=== PATIENT | female | born 1945 | race Caucasian/White ===

== ENCOUNTER 2018-03-06 10:35 | Day surgery (SDC) | payer OTHER ==
[2018-02-26 11:04] VITALS: BMI 24.7
[2018-03-06] MEDS ORDERED: ACETAMINOPHEN 325 MG TABLET (FP) PO PRN (11:34)
[2018-03-06] MEDS: GENTAMICIN SULFATE 0.3% OPHTHALMIC (EYE DROPS) 5ML BOTTLE ONE ×2 (11:55→12:10)
[2018-03-06] MEDS: KETOROLAC TROMETHAMINE 0.5% EYE DROP 1 DROP DROPS ONE ×5 (11:55→12:15)
[2018-03-06] MEDS: TROPICAMIDE 1% OPHTH SOLN 15 ML BOTTLE ONE ×5 (11:55→12:15)
[2018-03-06] MEDS: PHENYLEPHRINE 2.5% OPHTH SOLN 15 ML BOTTLE ONE ×5 (11:55→12:15)
[2018-03-06] MEDS: CYCLOPENTOLATE HCL 1% OPHTH SOLN 2 ML BOTTLE ONE ×5 (11:55→12:15)
[2018-03-06] MEDS ORDERED: LIDOCAINE HCL/PF 2% SDV 5ML VIAL ONE (13:17)
[2018-03-06] MEDS ORDERED: LIDOCAINE HCL 2% JELLY 10 ML CARTRIDGE ONE (13:18)
[2018-03-06] MEDS ORDERED: BUPIVACAINE HCL/PF 0.5% (5MG/ML) 10 ML VIAL ONE (13:18)
[2018-03-06] MEDS ORDERED: ACETYLCHOLINE 1:100 INTRA-OCUL 20 MG/2 ML KIT ONE (13:18)
[2018-03-06] MEDS ORDERED: MIDAZOLAM HCL 2 MG/2 ML SINGLE DOSE VIAL ONE (13:40)
[2018-03-06] MEDS ORDERED: EPI-SHUGARCAINE (EPINEPHRINE 0.025% & LIDOCAINE-PF 0.75%) 4ML ONE (13:54)
[2018-03-06 15:07] VITALS: TEMP 98.3
--- NOTE | 2018-03-06 15:33 | OP ---
DATE OF OPERATION: 03/06/2018 TITLE OF PROCEDURE: Planned extracapsular cataract extraction, phacoemulsification, and insertion of posterior chamber lens implant, right eye. SURGEON: Hugo Marin MD [employer] SUPERVISOR SURGEON: Hugo Marin MD ANESTHESIA: Local, standby. NURSE SOIL CONSERVATION AIDE: EDER Morales ANESTHESIOLOGIST: Rowan Spencer MD COMPLICATIONS: None. PREOPERATIVE DIAGNOSIS: Mature cataract, right eye. POSTOPERATIVE DIAGNOSIS: Mature cataract, right eye. FINDINGS/PROCEDURE: After successful peribulbar anesthesia was given to the right eye, the patient was prepped and draped in the usual manner to expose the right eye. A lid speculum was inserted after the Tegaderm strips were placed, and operating room microscope brought into position over the right eye. A superior fornix-based flap was then fashioned for 12 mm with Kenyatta scissors and 0.12 forceps and hemostasis with electrocautery. Limbal groove was fashioned for 3 mm with a crescent blade dissecting anterior to clear cornea. A 3-mm blade was used to enter into the anterior chamber. Then, a Viscoat 360-degree anterior capsulotomy was performed, and the leaflet removed from the eye. Phacoemulsification of the entire nucleus was then done in approximately 2 minutes' time, followed by irrigation and aspiration of all cortical material, leaving an intact posterior capsule and a red reflex present. Provisc was injected to the posterior chamber to deepen the posterior capsule, and the implant was inspected and folded and placed into the Provisc-filled cartridge. The cartridge was placed in the injector, and the implant was then injected into the eye such that the inferior haptic was in the inferior capsule bag and the superior haptic in the superior capsule bag and rotated in a horizontal position with a Sinskey hook. The Provisc was aspirated out. We placed some Miochol, Miostat, and BSS. The wound was closed with a single interrupted 2-0 Ethilon suture and tested for leakage, and none was found. Conjunctival-tenon flap was reapproximated. At this point, the implant was fixated in the capsular bag, centrally located, with a round pupil, intact posterior capsule, and a red reflex present. Topical Betoptic S and Maxitrol ophthalmic suspensions were placed as was polymyxin/bacitracin ophthalmic ointment. Tegaderm strips and lid speculum was removed from the lids and the lids were closed and a patch and shield placed on the eye and the patient was then discharged from the operating room to the recovery area in good condition, having tolerated the procedure well. HUGO MARIN M.D. JAK/[id number]
[2018-03-06 15:42] VITALS: BP 148/78; PULSE 69
== END 2018-03-06 15:40 | disposition home or self-care (01) ==
LOC: FASU 10:35
PROVIDERS: ATTEND Ophthalmology
PROC: 08RJ3JZ Replacement of Right Lens with Synthetic Substitute, Percutaneous Approach (ICD-10-PCS; principal; 2018-03-06 13:58)
DX: H25.21 Age-related cataract, morgagnian type, right eye (principal)

== ENCOUNTER 2018-04-17 09:01 | Day surgery (SDC) | payer OTHER ==
[2018-04-09 10:57] VITALS: BMI 24.7
[2018-04-17] MEDS: PHENYLEPHRINE 2.5% OPHTH SOLN 15 ML BOTTLE ONE ×5 (09:35→09:55)
[2018-04-17] MEDS: KETOROLAC TROMETHAMINE 0.5% EYE DROP 1 DROP DROPS ONE ×5 (09:35→09:55)
[2018-04-17] MEDS: CYCLOPENTOLATE HCL 1% OPHTH SOLN 2 ML BOTTLE ONE ×5 (09:35→09:55)
[2018-04-17] MEDS: TROPICAMIDE 1% OPHTH SOLN 15 ML BOTTLE ONE ×5 (09:35→09:55)
[2018-04-17] MEDS: GENTAMICIN SULFATE 0.3% OPHTHALMIC (EYE DROPS) 5ML BOTTLE ONE ×2 (09:35→10:05)
[2018-04-17] MEDS ORDERED: ONDANSETRON 4 MG/2 ML VIAL ONE (10:46)
[2018-04-17] MEDS ORDERED: MIDAZOLAM HCL 2 MG/2 ML SINGLE DOSE VIAL ONE (10:46)
[2018-04-17] MEDS ORDERED: LIDOCAINE HCL/PF 2% SDV 5ML VIAL ONE ×2 (10:46→11:15)
[2018-04-17] MEDS ORDERED: LIDOCAINE HCL 2% JELLY 10 ML CARTRIDGE ONE (11:15)
[2018-04-17] MEDS ORDERED: BUPIVACAINE HCL/PF 0.5% (5MG/ML) 10 ML VIAL ONE (11:15)
[2018-04-17] MEDS ORDERED: EPI-SHUGARCAINE (EPINEPHRINE 0.025% & LIDOCAINE-PF 0.75%) 4ML ONE (11:15)
[2018-04-17] MEDS ORDERED: ACETYLCHOLINE 1:100 INTRA-OCUL 20 MG/2 ML KIT ONE (11:15)
[2018-04-17] MEDS ORDERED: BSS (NA/CA/MG/K) BALANCED SALT SOLUTION OPHTH SOLN 15 ML BOTTLE ONE (12:19)
[2018-04-17] MEDS ORDERED: CARBACHOL 0.01% INTRA-OCULAR 1.5 ML VIAL ONE (12:20)
[2018-04-17] MEDS ORDERED: ACETAMINOPHEN 325 MG TABLET (FP) PO PRN (12:53)
[2018-04-17 13:05] VITALS: TEMP 97.6
[2018-04-17 13:29] VITALS: BP 135/89; PULSE 78
--- NOTE | 2018-04-17 14:21 | OP ---
DATE OF OPERATION: 04/17/2018 TITLE OF PROCEDURE: Planned extracapsular cataract extraction, phacoemulsification, insertion of posterior chamber lens implant of the left eye. SURGEON: Hugo Sanchez MD VP DIRECTOR OF FINANCE SURGEON: Avril Reece MD ANESTHESIA: Local standby. ANESTHESIOLOGIST: Reina Henderson MD PREOPERATIVE DIAGNOSIS: Mature cataract, left eye. POSTOPERATIVE DIAGNOSIS: Mature cataract, left eye. FINDINGS AND PROCEDURES: After successful peribulbar anesthesia was given in the OR to the left eye, patient was prepped and draped in the usual manner. I exposed the left eye using Tegaderm strips and a lid speculum, and the microscope brought in position over the left eye. Superior fornix-based flap was then fashioned for 12 mm using Kenyatta scissors, 0.12 forceps. A limbal groove was fashioned and for 3 mm using the crescent blade dissecting anterior into clear cornea. A 3-mm blade was used to enter the anterior chamber. Then, under Viscoat, a 360-degree anterior capsulotomy was performed and the leaflet removed from the eye. It should be noted that Shugarcaine was applied topically and intracamerally and into the anterior chamber prior to the capsulotomy. The phacoemulsification of the entire nucleus was done with bimanual technique in approximately 2 minutes time followed by irrigation-aspiration of all cortical material in the entire posterior capsule and a red reflex present. Provisc was injected in the posterior chamber to deepen the posterior capsule, and the implant was inspected carefully under the microscope and found to be free of defects, debris, and flaws, and it was then folded, placed in the Provisc-filled cartridge. The cartridge placed in the injector, and the implant was injected into the left eye such that the inferior haptic was in the inferior capsular bag, and the superior haptic was in the superior capsular bag, and then rotated in the horizontal position with the Sinskey hook. The Provisc was aspirated out, replaced with Miochol and Miostat and BSS. The wound was closed with a single interrupted 10-0 Ethilon suture and tested for leakage and none was found. A conjunctival tenon flap was reapproximated. At this point, the implant was fixated in the capsular bag centrally located with the round pupil intact posterior capsule and a red reflex present. Topical Betoptic S and Maxitrol ophthalmic suspensions were placed as was Bacitracin Polymyxin B ophthalmic ointment. The Tegaderm strips and the lid speculum were removed from the lids. Lids were closed, and a patch and shield placed on the eye, and the patient was then discharged from the operating room to the recovery area in good condition having tolerated the procedure well. Jordana PATTERSON/[id number]
== END 2018-04-17 13:35 | disposition home or self-care (01) ==
LOC: FASU 09:01
PROVIDERS: ATTEND Ophthalmology
PROC: 08RK3JZ Replacement of Left Lens with Synthetic Substitute, Percutaneous Approach (ICD-10-PCS; principal; 2018-04-17 12:01)
DX: H25.89 Other age-related cataract (principal)